=== PATIENT | female | born 1945 | race Caucasian/White ===

== ENCOUNTER 2018-12-11 13:30 | Emergency (ER) | payer MEDICARE ==
--- NOTE | 2018-12-11 14:01 | ED ---
Throat Pain/Nasal Congestion - HPI Summary HPI Summary: A 73 y/o female presents to [facility] with a chief complaint of thinking she had a fly in her left ear last night. She says that the fly was moving but now it is stopped. The patient is unsure if it is still there. She denies any pain in her ear, rating her pain as a 0/10 in severity. - History of Current Complaint Chief Complaint: EDEarPain Time Seen by Provider: 12/11/18 13:51 Hx Obtained From: Patient Onset/Duration: Sudden Onset, Lasting Hours, Still Present Severity: Mild Associated Signs And Symptoms: Positive: Negative Cough: None - Allergies/Home Medications Allergies/Adverse Reactions: Allergies Allergy/AdvReac Type Severity Reaction Status Date / Time acetaminophen [From Tylenol] Allergy Anxiety Verified 12/11/18 13:48 adhesive tape Allergy Rash Verified 12/11/18 13:48 amoxicillin Allergy Shortness Verified 12/11/18 13:49 of Breath apple Allergy Swelling Verified 12/11/18 13:48 atenolol Allergy See Comment Verified 12/11/18 13:48 cephalexin [From Keflex] Allergy Rash Verified 12/11/18 13:48 ciprofloxacin Allergy Rash Verified 12/11/18 13:48 ibuprofen Allergy Unknown Verified 12/11/18 13:48 Reaction Details Iodinated Contrast- Oral and Allergy Rash Verified 12/11/18 13:48 IV Dye metronidazole [From Flagyl] Allergy Unknown Verified 12/11/18 13:48 Reaction Details peach Allergy Swelling Verified 12/11/18 13:48 pear Allergy Swelling Verified 12/11/18 13:48 prednisone Allergy See Comment Verified 12/11/18 13:48 propoxyphene [From Darvon] Allergy See Comment Verified 12/11/18 13:48 sulindac [From Clinoril] Allergy Unknown Verified 12/11/18 13:48 Reaction Details tetracycline Allergy Unknown Verified 12/11/18 13:48 Reaction Details theophylline Allergy Unknown Verified 12/11/18 13:48 Reaction Details verapamil Allergy See Comment Verified 12/11/18 13:48 peaches Allergy Swelling Uncoded 04/28/16 10:57 pears Allergy Swelling Uncoded 04/28/16 10:57 tape Allergy Rash Uncoded 04/28/16 10:57 PMH/Surg Hx/FS Hx/Imm Hx Cardiovascular History: Reports: Hx Hypertension - controlled with medication, Other Cardiovascular Problems/Disorders - PSVT Denies: Hx Myocardial Infarction Respiratory History: Reports: Hx Asthma Sensory History: Denies: Hx Deafness EENT History: Denies: Hx Deafness Psychiatric History: Reports: Hx Anxiety - Surgical History Surgery Procedure, Year, and Place: appy, tonsillectomy, breast lumpectomies, right knee, tubal, hyster Hx Anesthesia Reactions: No - Immunization History Date of Tetanus Vaccine: remote Date of Influenza Vaccine: 2011 Infectious Disease History: No Infectious Disease History: Denies: Traveled Outside the [place] in Last 30 Days - Family History Known Family History: Positive: Hypertension - Social History Alcohol Use: None Substance Use Type: Reports: None Smoking Status (MU): Never Smoked Tobacco Review of Systems Negative: Fever Positive: Other - positive: possible fly in ear since last night without ear pain. Negative: Ear Ache All Other Systems Reviewed And Are Negative: Yes Physical Exam - Summary Physical Exam Summary: VITAL SIGNS: Reviewed. GENERAL: Patient is a well-developed and nourished FEMALE who is lying comfortable in the stretcher. Patient is not in any acute respiratory distress. HEAD AND FACE: No signs of trauma. No ecchymosis, hematomas or skull depressions. No sinus tenderness. EYES: PERRLA, EOMI x 2, No injected conjunctiva, no nystagmus. EARS: Hearing grossly intact. Ear canals and tympanic membranes are within normal limits. No foreign body found. MOUTH: Oropharynx within normal limits. NECK: Supple, trachea is midline, no adenopathy, no JVD, no carotid bruit, no c- spine tenderness, neck with full ROM. CHEST: Symmetric, no tenderness at palpation. LUNGS: Clear to auscultation bilaterally. No wheezing or crackles. CVS: Regular rate and rhythm, S1 and S2 present, no murmurs or gallops appreciated. ABDOMEN: Soft, non-tender. No signs of distention. No rebound, no guarding, and no masses palpated. Bowel sounds are normal. EXTREMITIES: FROM in all major joints, no edema, no cyanosis or clubbing. NEURO: Alert and oriented x 3. No acute neurological deficits. Speech is normal and follows commands. SKIN: Dry and warm. Triage Information Reviewed: Yes Vital Signs On Initial Exam: Initial Vitals Temp Pulse Resp BP Pulse Ox 98.3 F 70 16 144/73 99 12/11/18 13:32 12/11/18 13:32 12/11/18 13:32 12/11/18 13:32 12/11/18 13:32 Vital Signs Reviewed: Yes Diagnostics - Vital Signs Vital Signs Temp Pulse Resp BP Pulse Ox 12/11/18 13:32 98.3 F 70 16 144/73 99 - Laboratory Lab Statement: Any lab studies that have been ordered have been reviewed, and results considered in the medical decision making process. EENT Course/Dx - Course Assessment/Plan: A 73 y/o female presents to [facility] with a chief complaint of thinking she had a fly in her left ear last night. She says that the fly was moving but now it is stopped. The patient is unsure if it is still there. She denies any pain in her ear, rating her pain as a 0/10 in severity. After flushing the ear we noticed that she had a very small insect in the left ear which was removed. At this point the patient is feeling better therefore she will be discharged home with follow-up with her PCP. Patient is hemodynamically stable alert and oriented 3. - Diagnoses Provider Diagnoses: Ear foreign body Discharge - Sign-Out/Discharge Documenting (check all that apply): Patient Departure - DC Patient Received Moderate/Deep Sedation with Procedure: No - Discharge Plan Condition: Stable Disposition: HOME Patient Education Materials: Ear Foreign Body (ED) Referrals: Ramirez Gresham MD [Primary Care Provider] - (2-3 days) Additional Instructions: FOLLOW UP WITH YOUR PRIMARY CARE PROVIDER. RETURN TO THE ED FOR ANY WORSENING OR NEW SYMPTOMS. - Billing Disposition and Condition Condition: STABLE Disposition: Home - Attestation Statements Document Initiated by Wendi: Yes Documenting Scribe: Mikey Vincent Provider For Whom Wendi is Documenting (Include Credential): Willy Lemus MD Scribe Attestation: I, Mikey Vincent, scribed for Willy Lemus MD on 12/12/18 at 1225. Scribe Documentation Reviewed: Yes Provider Attestation: The documentation as recorded by the Mikey vance accurately reflects the service I personally performed and the decisions made by me, Willy Lemus MD Status of Scribe Document: Viewed
[2018-12-11 14:51] VITALS: BP 0/0
== END 2018-12-11 14:50 | disposition home or self-care (01) ==
LOC: ED 13:30
DX: T16.2XXA Foreign body in left ear, initial encounter (principal); X58.XXXA Exposure to other specified factors, initial encounter; Z88.8 Allergy status to other drugs, medicaments and biological substances; Z88.1 Allergy status to other antibiotic agents; Z91.041 Radiographic dye allergy status; I10 Essential (primary) hypertension; Z79.899 Other long term (current) drug therapy
CPT/HCPCS: 99281

== ENCOUNTER 2019-06-08 11:41 | Emergency (ER) | payer MEDICARE ==
--- NOTE | 2019-06-08 12:20 | ED ---
Complex/Multi-Sys Presentation - HPI Summary HPI Summary: 73 y/o female presented to [facility] complaining of dental pain since yesterday due to a left lower tooth that has been infected 3 times, according to Pt. Pt states she has been on 2 rounds of Zithromax and her dentist needs her medical clearance from water chaser in order to pull her tooth due to her SVT. Pt confirmed chills, swelling of the face and mouth, and intermittent heart palpitations. Patient has been urinating frequently and states a lack of control over urination. Hx of UTIs is endorsed. Pt denies any fever, erythema of eyes, sore throat, CP, SOB, cough, abdominal pain, N/V, dysuria, hematuria, myalgia, edema, rash, or dizziness as well as pain in arms or shoulder blades. She does not believe she is allergic to penicillin but is allergic to amoxicillin. She currently sees a doctor in [place]. 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 Negative : Dizziness, SOB, Cough, Chest Pain, Edema, Nausea, Vomiting, Diarrhea, Abdominal Pain, Dysuria, Fever Related History: Recent Illness - 3x infection - Allergies/Home Medications Allergies/Adverse Reactions: Allergies Allergy/AdvReac Type Severity Reaction Status Date / Time acetaminophen [From Tylenol] Allergy Anxiety Verified 06/08/19 11:51 adhesive tape Allergy Rash Verified 06/08/19 11:51 amoxicillin Allergy Shortness Verified 06/08/19 11:51 of Breath apple Allergy Swelling Verified 06/08/19 11:51 atenolol Allergy See Comment Verified 06/08/19 11:51 cephalexin [From Keflex] Allergy Rash Verified 06/08/19 11:51 ciprofloxacin Allergy Rash Verified 06/08/19 11:51 ibuprofen Allergy Unknown Verified 06/08/19 11:51 Reaction Details Iodinated Contrast Media Allergy Rash Verified 06/08/19 11:51 [Iodinated Contrast- Oral and IV Dye] metronidazole [From Flagyl] Allergy Unknown Verified 06/08/19 11:51 Reaction Details peach Allergy Swelling Verified 06/08/19 11:51 pear Allergy Swelling Verified 06/08/19 11:51 prednisone Allergy See Comment Verified 06/08/19 11:51 propoxyphene [From Darvon] Allergy See Comment Verified 06/08/19 11:51 sulindac [From Clinoril] Allergy Unknown Verified 06/08/19 11:51 Reaction Details tetracycline Allergy Unknown Verified 06/08/19 11:51 Reaction Details theophylline Allergy Unknown Verified 06/08/19 11:51 Reaction Details verapamil Allergy See Comment Verified 06/08/19 11:51 PMH/Surg Hx/FS Hx/Imm Hx Cardiovascular History: Reports: Hx Hypertension - controlled with medication, Other Cardiovascular Problems/Disorders - PSVT Denies: Hx Myocardial Infarction Respiratory History: Reports: Hx Asthma Sensory History: Denies: Hx Deafness Psychiatric History: Reports: Hx Anxiety - Surgical History Surgery Procedure, Year, and Place: appy, tonsillectomy, breast lumpectomies, right knee, tubal, hyster Hx Anesthesia Reactions: No - Immunization History Date of Tetanus Vaccine: remote Date of Influenza Vaccine: 2011 Infectious Disease History: No Infectious Disease History: Denies: Traveled Outside the [place] in Last 30 Days - Family History Known Family History: Positive: Hypertension - Social History Alcohol Use: None Substance Use Type: Reports: None Smoking Status (MU): Never Smoked Tobacco Review of Systems Positive: Chills. Negative: Fever Negative: Erythema Positive: Dental Pain. Negative: Sore Throat Positive: Palpitations. Negative: Chest Pain Negative: Shortness Of Breath, Cough Negative: Abdominal Pain, Vomiting, Nausea Positive: frequency - high. Negative: dysuria, hematuria Negative: Myalgia, Edema Negative: Rash Neurological: Other - negative dizziness All Other Systems Reviewed And Are Negative: Yes Physical Exam - Summary Physical Exam Summary: Constitutional: Well-developed, Well-nourished, Alert. (-) Distressed Skin: Warm, Dry HENT: Normocephalic; Atraumatic, see Images for dental evaluation Eyes: Conjunctiva normal Neck: Musculoskeletal ROM normal neck. (-) JVD, (-) Stridor, (-) Tracheal deviation Cardio: Rhythm regular, rate normal, Heart sounds normal; Intact distal pulses; The pedal pulses are 2+ and symmetric. Radial pulses are 2+ and symmetric. (-) Murmur Pulmonary/Chest wall: Effort normal. (-) Respiratory distress, (-) Wheezes, (-) Rales Abd: Soft, (-) tenderness, (-) Distension, (-) Guarding, (-) Rebound Musculoskeletal: (-) Edema Lymph: (-) Cervical adenopathy Neuro: Alert, Oriented x3 Psych: Mood and affect Normal Triage Information Reviewed: Yes Vital Signs On Initial Exam: Initial Vitals Temp Pulse Resp BP Pulse Ox 98.5 F 74 16 208/100 97 06/08/19 11:43 06/08/19 11:43 06/08/19 11:43 06/08/19 11:43 06/08/19 11:43 Vital Signs Reviewed: Yes Procedures - Sedation Patient Received Moderate/Deep Sedation with Procedure: No Diagnostics - Vital Signs Vital Signs Temp Pulse Resp BP Pulse Ox 06/08/19 11:43 98.5 F 74 16 208/100 97 - Laboratory Result Diagrams: 06/08/19 12:15 06/08/19 12:15 Lab Statement: Any lab studies that have been ordered have been reviewed, and results considered in the medical decision making process. - EKG 1212 Cardiac Rate: NL EKG Rhythm: Sinus Rhythm Summary of EKG Findings: Normal sinus rhythm at 81bpm. No STEMI. This EKG was reviewed and interpreted by the ED physician. Complex Multi-Symp Course/Dx Course Of Treatment: 73 y/o female presented to [facility] complaining of dental pain since yesterday due to a left lower tooth that has been infected 3 times, according to Pt. Pt states she has been on 2 rounds of Zithromax and her dentist needs her medical clearance from water chaser in order to pull her tooth due to her SVT. Pt confirmed chills, swelling of the face and mouth, and intermittent heart palpitations. Patient has been urinating frequently and states a lack of control over urination. Hx of UTIs is endorsed. Exam of 19th tooth showed significant decay, filling in place, no periapical abscess; no trismus noted. EKG showed normal sinus rhythm at 81bpm. No STEMI. Bloodwork shows abs monos and glucose high. Mg was low at 1.6. UA showed blood, leukocyte esterase, WBC, RBC, squamous epithelium, and bx. Pt was given 500mg PO Zithromax, 300mg PO Cleocin, 400mg PO Motrin, and 1 tab PO Bactrim Ds. HTN appears asymptomatic, pt was advised to monitor BP and follow up with PCP. Pt was discharged with Dx of Hypomagnesemia, UTI, and dental infection and instructed to follow up with her PCP in 2-3 days as well as her dentist. She was prescribed a Mg supplement, Bactrim, and Clindamyacin. - Diagnoses Provider Diagnoses: Hypomagnesemia, UTI (urinary tract infection), Dental infection Discharge ED - Sign-Out/Discharge Documenting (check all that apply): Patient Departure - dc - Discharge Plan Condition: Stable Disposition: HOME Prescriptions: Clindamycin HCl 300 mg PO QID #28 capsule Magnesium Oxide TAB* [MagOx 400 TAB*] 400 mg PO DAILY #14 tab Sulfamethox/Trimethoprim DS* [Bactrim DS 800/160 TAB*] 1 tab PO BID #10 tab Patient Education Materials: Urinary Tract Infection in Women (ED), Hypomagnesemia (ED), Toothache (ED) Referrals: Ramirez Gresham MD [Primary Care Provider] - Additional Instructions: Follow up with your primacy care provider in 2-3 days. Also follow up with your dentist. If you experience new or worsening symptoms please return to the ER. Images - Images Dental: 1 - significant decay, filling in place, no periapical abscess, no trismus - Attestation Statements Document Initiated by Scribe: Yes Documenting Scribe: KAI ENRIQUEZ Provider For Whom Scribe is Documenting (Include Credential): CLEMENTE VALADEZ MD Scribe Attestation: KAI Anguiano, scribed for CLEMENTE VALADEZ MD on 06/08/19 at 1620. Status of Scribe Document: Ready
[2019-06-08 12:27] LABS: ABS Eosinophils 0.1 10^3/ul (0-0.6); ABS Lymphocytes 1.4 10^3/ul (1.0-4.8); ABS Monocytes 0.9 10^3/ul (0-0.8); ABS Neutrophils 5.1 10^3/ul (1.5-7.7); Eosinophil % 1.6 %; Hematocrit 41 % (35-47); Hemoglobin 13.8 g/dL (12.0-16.0); Lymphocyte % 18.7 %; Mean Corpuscular HGB Conc 34 g/dL (31-36); Mean Corpuscular Hemoglobin 29 pg (27-31); Mean Corpuscular Volume 87 fL (80-97); Mean Platelet Volume 8.8 fL (7.4-10.4); Platelet Count 260 10^3/uL (150-450); Red Blood Count 4.71 10^6 /uL (3.70-4.87); Red Cell Distribution Width 14 % (10-15); White Blood Count 7.5 10^3/uL (3.5-10.8)
[2019-06-08 12:46] LABS: Albumin 3.8 g/dL (3.2-5.2); Albumin/Globulin Ratio 1.1 (1-3); BUN/Creatinine Ratio 17.6 (8-20); Calcium 9.2 mg/dL (8.6-10.3); EGFR African American 73.5 (>60); EGFR Non-African American 60.8 (>60); Globulin 3.4 g/dL (2-4); Magnesium 1.6 mg/dL (1.9-2.7); Potassium 3.9 mmol/L (3.5-5.0); Total Bilirubin 0.7 mg/dL (0.2-1.0); Total Protein 7.2 g/dL (6.4-8.9)
[2019-06-08 12:47] LABS: Troponin I 0.01 ng/mL (<0.03)
[2019-06-08] MEDS ORDERED: Ibuprofen TAB* 400 MG PO ONE (12:50)
[2019-06-08] MEDS ORDERED: Azithromycin TAB* 250 MG PO ONE (12:50)
[2019-06-08 13:07] LABS: T4, Total 7.52 mcg/dL (6.09-12.23)
[2019-06-08 13:11] LABS: TSH (Thyroid Stimulating Horm) 0.95 mcIU/mL (0.34-5.60)
[2019-06-08 14:01] LABS: Urine Appearance Clear; Urine Bilirubin Negative (Negative); Urine Blood 1+ (Negative); Urine Color Yellow; Urine Glucose Negative (Negative); Urine Ketones Negative (Negative); Urine Nitrite Negative (Negative); Urine Protein Negative (Negative); Urine Specific Gravity 1.013 (1.010-1.030); Urine Urobilinogen Negative (Negative)
[2019-06-08 14:04] LABS: Urine Bacteria 1+ (Absent); Urine Red Blood Cell 1+(3-5/hpf) (Absent); Urine Squamous Epithelial Cell Present (Absent); Urine White Blood Cell 3+(>20/hpf) (Absent)
[2019-06-08] MEDS ORDERED: Sulfamethox/Trimethoprim DS 800/160* TAB PO ONE (14:17)
[2019-06-08] MEDS ORDERED: Clindamycin CAP* 150 MG PO ONE (14:17)
[2019-06-08 14:40] VITALS: BP 180/84
--- NOTE | 2019-06-10 06:03 | ED ---
Imaging and Labs Follow Up Follow Up Type: Labs/Cultures Labs/Culture Result: urine culture preliminary shows 75-100,000 Escherichia coli, 75-100,000 Klebsiella pneumonia. Patient Communication/Plan: Patient treated with clindamycin and Bactrim this is presumed appropriate. Awaiting sensitivity reports. Provider Diagnoses: Hypomagnesemia, UTI (urinary tract infection), Dental infection
== END 2019-06-08 14:39 | disposition home or self-care (01) ==
LOC: ED 11:41
DX: K08.89 Other specified disorders of teeth and supporting structures (principal); N39.0 Urinary tract infection, site not specified; B96.20 Unspecified Escherichia coli [E. coli] as the cause of diseases classified elsewhere; B96.1 Klebsiella pneumoniae [K. pneumoniae] as the cause of diseases classified elsewhere; I10 Essential (primary) hypertension; F41.9 Anxiety disorder, unspecified; R00.2 Palpitations; B99.9 Unspecified infectious disease
CPT/HCPCS: 36415; 80053; 81003; 81015; 83605; 83735; 84436; 84443; 84484; 85025; 87077; 87086; 87186; 93005; 99282; A9270-GY

== ENCOUNTER 2019-09-30 21:38 | Emergency (ER) | payer MEDICARE ==
--- NOTE | 2019-09-30 22:39 | ED ---
Palpitations / Dysrhythmia - HPI Summary HPI Summary: This pt is a 73 Y/O F presenting to [facility] with a CC of palpitations that began yesterday and were intermittent in nature. She states that she checked her pulse yesterday while at home after feeling jittery. She states that when she tested it with her at home pulse-ox she had a rate of 33 BPM and had a low BP. Currently she states that she has tachycardia and HTN. She currently denies any fevers, chills, headaches, SOB, CP, sore throat, dizziness, lightheadedness, and coughs. She states that she has no aggravating or alleviating factors. She has a PMHx of HTN. - History of Current Complaint Chief Complaint: EDDysrhythmPalp Time Seen by Provider: 09/30/19 22:31 Hx Obtained From: Patient Onset/Duration: Sudden Onset Timing: Constant Severity Initially: Moderate Severity Currently: Moderate Character: Slow, Fast Aggravating: Nothing Alleviating: Nothing Associated Signs & Symptoms: Negative - fevers, chills, headaches, SOB, CP, sore throat, dizziness, lightheadedness, and coughs - Allergy/Home Medications Allergies/Adverse Reactions: Allergies Allergy/AdvReac Type Severity Reaction Status Date / Time acetaminophen [From Tylenol] Allergy Anxiety Verified 09/30/19 21:49 adhesive tape Allergy Rash Verified 09/30/19 21:49 amoxicillin Allergy Shortness Verified 09/30/19 21:49 of Breath apple Allergy Swelling Verified 09/30/19 21:49 atenolol Allergy See Comment Verified 09/30/19 21:49 cephalexin [From Keflex] Allergy Rash Verified 09/30/19 21:49 ciprofloxacin Allergy Rash Verified 09/30/19 21:49 ibuprofen Allergy Unknown Verified 09/30/19 21:49 Reaction Details Iodinated Contrast Media Allergy Rash Verified 09/30/19 21:49 [Iodinated Contrast- Oral and IV Dye] metronidazole [From Flagyl] Allergy Unknown Verified 09/30/19 21:49 Reaction Details peach Allergy Swelling Verified 09/30/19 21:49 pear Allergy Swelling Verified 09/30/19 21:49 prednisone Allergy See Comment Verified 09/30/19 21:49 propoxyphene [From Darvon] Allergy See Comment Verified 09/30/19 21:49 sulindac [From Clinoril] Allergy Unknown Verified 09/30/19 21:49 Reaction Details tetracycline Allergy Unknown Verified 09/30/19 21:49 Reaction Details theophylline Allergy Unknown Verified 09/30/19 21:49 Reaction Details verapamil Allergy See Comment Verified 09/30/19 21:49 Home Medications: Home Medications Lisinopril TAB* [Prinivil TAB 10 MG*] 10 mg PO DAILY 04/28/16 [History Confirmed 12/11/16] Potassium Chlor TAB* [Potassium Chlor TAB 20 MEQ*] 20 meq PO DAILY 04/28/16 [ History Confirmed 12/11/16] Hydrochlorothiazide TAB* [Hydrodiuril TAB*] 12.5 mg PO DAILY #30 tab 04/29/16 [ Rx Confirmed 12/11/16] Albuterol HFA INHALER* [Ventolin HFA Inhaler*] 2 puff INH Q6H PRN 12/11/16 [ History Confirmed 12/11/16] Cranberry Conc/Ascorbic Acid [Cranberry Fruit Concentra] 12,600 mg PO DAILY 11/22 [History Confirmed 12/11/16] Metoprolol Succinate [Toprol Xl] 50 mg PO BID 12/11/16 [History Confirmed ] Omeprazole CAP (NF) [Prilosec CAP* 20 MG] 20 mg PO DAILY 12/11/16 [History Confirmed 12/11/16] Magnesium Oxide TAB* [MagOx 400 TAB*] 400 mg PO DAILY #14 tab 06/08/19 [Rx] Sulfamethox/Trimethoprim DS* [Bactrim DS 800/160 TAB*] 1 tab PO BID #10 tab 06/27 [Rx] clindamycin HCL [Clindamycin HCl] 300 mg PO QID #28 capsule 06/08/19 [Rx] PMH/Surg Hx/FS Hx/Imm Hx Previously Healthy: Yes Endocrine/Hematology History: Denies: Hx Diabetes Cardiovascular History: Reports: Hx Hypertension - controlled with medication, Other Cardiovascular Problems/Disorders - PSVT Denies: Hx Myocardial Infarction Respiratory History: Reports: Hx Asthma Sensory History: Denies: Hx Deafness Psychiatric History: Reports: Hx Anxiety - Cancer History Hx Chemotherapy: No Hx Radiation Therapy: No - Surgical History Surgical History: Yes Surgery Procedure, Year, and Place: appy, tonsillectomy, breast lumpectomies, right knee, tubal, hyster Hx Anesthesia Reactions: No - Immunization History Date of Tetanus Vaccine: remote Date of Influenza Vaccine: 2011 Immunizations Up to Date: Yes Infectious Disease History: No Infectious Disease History: Denies: Traveled Outside the [place] in Last 30 Days - Family History Known Family History: Positive: Hypertension - Social History Occupation: Retired Lives: Alone Alcohol Use: None Hx Substance Use: No Substance Use Type: Reports: None Hx Tobacco Use: No Smoking Status (MU): Never Smoked Tobacco Review of Systems Negative: Fever, Chills Negative: Sore Throat Positive: Palpitations - slow yesterday, fast today , Other - fluctuating blood pressure, low and high . Negative: Chest Pain Negative: Shortness Of Breath, Cough Negative: Vomiting, Nausea Neurological/Mental Status: Negative - dizziness, lightheadedness Negative: Headache All Other Systems Reviewed And Are Negative: Yes Physical Exam - Summary Physical Exam Summary: Appearance: Well-appearing, Well-nourished, lying in bed comfortably Skin: Warm, dry, no obvious rash Eyes: sclera anicteric, no conjunctival pallor ENT: mucous membranes moist, pharynx appears normal Neck: Supple, nontender Respiratory: Clear to auscultation, no signs of respiratory distress Cardiovascular: Normal S1, S2. No murmurs. Normal distal pulses in tibial and radial bilaterally. Abdomen: Soft, nontender, normal active bowel sounds present Musculoskeletal: Normal, Strength/ROM Intact Neurological: A&Ox3, awake and alert, mentation is normal, speech is fluent and appropriate Psychiatric: affect is normal, does not appear anxious or depressed Triage Information Reviewed: Yes Vital Signs On Initial Exam: Initial Vitals Temp Pulse Resp BP Pulse Ox 99.1 F 86 19 196/117 97 09/30/19 21:42 09/30/19 21:42 09/30/19 21:42 09/30/19 21:42 09/30/19 21:42 Vital Signs Reviewed: Yes Procedures - Sedation Patient Received Moderate/Deep Sedation with Procedure: No Diagnostics - Vital Signs Vital Signs Temp Pulse Resp BP Pulse Ox 09/30/19 21:42 99.1 F 86 19 196/117 97 - Laboratory Lab Statement: Any lab studies that have been ordered have been reviewed, and results considered in the medical decision making process. Course/Dx - Course Course Of Treatment: This pt is a 73 Y/O F presenting to [facility] with a CC of palpitations that began yesterday and were intermittent in nature. She states that she checked her pulse yesterday while at home after feeling jittery. She states that when she tested it with her at home pulse-ox she had a rate of 33 BPM and had a low BP. Currently she states that she has tachycardia and HTN. Her PE shows no acute abnormalities. - Diagnoses Provider Diagnoses: Chronic hypertension - Critical Care Time Critical Care Statement: Critical care time is provided exclusive of any time spent performing procedures. Discharge ED - Sign-Out/Discharge Documenting (check all that apply): Patient Departure - discharge - Discharge Plan Referrals: Marga DEAN,Ramirez [Primary Care Provider] - - Attestation Statements Document Initiated by Scribe: Yes Documenting Scribe: Darien Tony Provider For Whom Scribe is Documenting (Include Credential): Deniz Powell MD Scribe Attestation: Darien Anguiano, scribed for Deniz Powell MD on 09/30/19 at 2241. Status of Scribe Document: Ready
[2019-09-30 22:59] VITALS: BP 197/101
== END 2019-09-30 22:59 | disposition home or self-care (01) ==
LOC: ED 21:38
DX: I10 Essential (primary) hypertension (principal); R00.2 Palpitations; Z88.0 Allergy status to penicillin; Z88.8 Allergy status to other drugs, medicaments and biological substances; Z79.899 Other long term (current) drug therapy; F41.9 Anxiety disorder, unspecified; J45.909 Unspecified asthma, uncomplicated
CPT/HCPCS: 99282

== ENCOUNTER 2021-07-29 02:46 | Observation (INO) ==
[2021-07-29] MEDS ORDERED: Ondansetron 4 mg VIAL 2 MG/ML 2 ml VIAL IV ONE (03:02)
[2021-07-29 03:49] LABS: Hematocrit 40 % (35-47); Hemoglobin 13.3 g/dL (12.0-16.0); Mean Corpuscular HGB Conc 33 g/dL (31-36); Mean Corpuscular Hemoglobin 29 pg (27-31); Mean Corpuscular Volume 88 fL (80-97); Mean Platelet Volume 8.5 fL (7.4-10.4); Platelet Count 206 10^3/uL (150-450); Red Blood Count 4.59 10^6 /uL (3.70-4.87); Red Cell Distribution Width 14 % (10-15); White Blood Count 12.3 10^3/uL (3.5-10.8)
[2021-07-29 04:07] LABS: Activated Partial Thrombo Time 27.9 seconds (26.0-38.0); INR 1.09 (0.86-1.15)
[2021-07-29 04:07] LABS: Albumin 3.8 g/dL (3.2-5.2); Albumin/Globulin Ratio 1.2 (1-3); C Reactive Protein 12.41 mg/L (<8.01); Calcium 8.9 mg/dL (8.6-10.3); Globulin 3.1 g/dL (2-4); Potassium 3.8 mmol/L (3.5-5.0); Total Bilirubin 0.7 mg/dL (0.2-1.0); Total Protein 6.9 g/dL (6.4-8.9); eGFR CKD-EPI 60.6 (>60)
[2021-07-29 04:09] LABS: Troponin I 0.01 ng/mL (<0.03)
[2021-07-29 04:22] LABS: ABS Basophils 0.1 10^3/ul (0-0.2); ABS Lymphocytes 0.4 10^3/ul (1.0-4.8); ABS Monocytes 2.2 10^3/ul (0-0.8); ABS Neutrophils 9.5 10^3/ul (1.5-7.7); Eosinophil % 0.2 %; Lymphocyte % 3.4 %
[2021-07-29] MEDS ORDERED: Clindamycin 600 MG/D5W BAG 600 MG/50 ML BAG IV ONE (05:30)
[2021-07-29] MEDS: Enoxaparin 40 MG/0.4 ML SYR SUBCUT SCH (09:50)
[2021-07-29] MEDS: Potassium Chlor 20 meq TAB.ER PO SCH (09:51)
[2021-07-29] MEDS: Clindamycin 600 MG/D5W BAG 600 MG/50 ML BAG IV SCH ×2 (14:55→23:14)
[2021-07-30 06:15] LABS: Hematocrit 33 % (35-47); Hemoglobin 11.1 g/dL (12.0-16.0); Mean Corpuscular HGB Conc 34 g/dL (31-36); Mean Corpuscular Hemoglobin 30 pg (27-31); Mean Corpuscular Volume 87 fL (80-97); Mean Platelet Volume 8.7 fL (7.4-10.4); Platelet Count 172 10^3/uL (150-450); Red Blood Count 3.78 10^6 /uL (3.70-4.87); Red Cell Distribution Width 15 % (10-15); White Blood Count 9.3 10^3/uL (3.5-10.8)
[2021-07-30 06:16] LABS: ABS Lymphocytes 0.8 10^3/ul (1.0-4.8); ABS Monocytes 1.7 10^3/ul (0-0.8); ABS Neutrophils 6.7 10^3/ul (1.5-7.7); Eosinophil % 0.2 %; Nucleated Red Blood Cells % 0.1
[2021-07-30 06:29] LABS: Calcium 8.3 mg/dL (8.6-10.3); Potassium 3.9 mmol/L (3.5-5.0); eGFR CKD-EPI 52.2 (>60)
[2021-07-30] MEDS: Clindamycin 600 MG/D5W BAG 600 MG/50 ML BAG IV SCH ×2 (06:37→14:11)
[2021-07-30] MEDS: Enoxaparin 40 MG/0.4 ML SYR SUBCUT SCH (10:08)
[2021-07-30] MEDS: Potassium Chlor 20 meq TAB.ER PO SCH (10:08)
[2021-07-30 16:21] VITALS: BP 140/70
== END 2021-07-30 16:35 | disposition home or self-care (01) ==
LOC: ED 02:46 → EDHOLD 02:46 → MEDTELE 12:14
PROVIDERS: ADMIT Internal Medicine; ATTEND Internal Medicine

== ENCOUNTER 2023-08-03 07:33 | Inpatient (IN) ==
[2023-08-03] MEDS ORDERED: Lorazepam PYXIS KEY PRN (07:38)
[2023-08-03] MEDS ORDERED: Rocuronium 50 mg VIAL 10 mg/ml 5 ml VIAL (50 mg) ONE (07:41)
[2023-08-03] MEDS ORDERED: Succinylcholine 200 mg VIAL 20 mg/ml 10 ml VIAL (200 mg) ONE (07:41)
[2023-08-03] MEDS: LORazepam 2 mg VIAL 1 ml IV PUSH ONE (07:49)
[2023-08-03 07:53] LABS: Hematocrit 34.3 % (35-45); Hemoglobin 11.5 g/dL (11.5-14.3); Mean Corpuscular Hemoglobin 29.2 pg (27-33); Mean Corpuscular Hgb Conc 33.5 g/dL (31-36); Mean Corpuscular Volume 87.3 fL (80-97); Platelet Count 435 10^3/uL (150-450); Red Blood Count 3.93 10^6/uL (3.63-4.92); Red Cell Distribution Width 17.3 % (12-17); White Blood Count 9.2 10^3/uL (3.8-11.8)
[2023-08-03 08:20] LABS: PCO2 Arterial 46 mmHg (35-45); PO2 Arterial 89 mmHg (80-100)
[2023-08-03 08:34] LABS: Activated Partial Thrombo Time 28.5 seconds (26.0-38.0); INR 1.05 (0.83-1.13)
[2023-08-03 08:37] LABS: ABS Basophils 0.1 10^3/uL (0.0-0.1); ABS Eosinophils 0.3 10^3/uL (0.0-0.5); ABS Lymphocytes 1.3 10^3/uL (1.0-4.8); ABS Monocytes 1.8 10^3/uL (0.0-0.9); ABS Neutrophils 5.9 10^3/uL (1.5-7.6); ABS Nucleated RBC 0.01 10^3/ul; Eosinophil % 2.8 %; Lymphocyte % 13.6 %; Nucleated Red Blood Cells % 0.1 %/100WBC (0.0-0.8)
[2023-08-03 08:40] LABS: Albumin 3.4 g/dL (3.2-5.2); Calcium 9.2 mg/dL (8.6-10.3); Creatinine, Serum 0.86 mg/dL (0.51-0.95); Direct Bilirubin 0.1 mg/dL (0.03-0.18); Globulin 3.4 g/dL (2-4); HDL Cholesterol 42.7 mg/dL; Indirect Bilirubin 0.4 mg/dL (0.3-1.0); Potassium 3.5 mmol/L (3.5-5.0); Total Bilirubin 0.5 mg/dL (0.2-1.0); Total Protein 6.8 g/dL (6.4-8.9)
[2023-08-03] MEDS: Dexamethasone IV 4 MG/ML VIAL 1 ml VIAL IV SLOW PU ONE (08:53)
[2023-08-03] MEDS: levETIRAcetam IV 3,000 MG in NS 0.9% 100 ml BAG 100 ML IVPB ONE (08:59)
[2023-08-03 09:03] LABS: Urine Appearance Clear; Urine Bilirubin Negative (Negative); Urine Blood Negative (Negative); Urine Color Yellow; Urine Glucose Negative (Negative); Urine Ketones Negative (Negative); Urine Nitrite Negative (Negative); Urine Protein Trace (Negative); Urine Urobilinogen 1+ (Negative)
[2023-08-03] MEDS: NS 0.9% 1000 ml BAG 1,000 ML IV SCH (09:19)
[2023-08-03] MEDS: Iodixanol (CONTRAST) 320 MG/ML 100 ML SDV IV ONE (09:23)
[2023-08-03 10:26] LABS: Urine Bacteria Absent /HPF (Absent); Urine Red Blood Cell 2+(6-10/hpf) /HPF (0-Trace); Urine Squamous Epithelial Cell Present /HPF (Absent); Urine White Blood Cell 1+(6-10/hpf) /HPF (0-Trace)
[2023-08-03] MEDS: Iohexol 350 (CONTRAST) 500 ML MDV IV ONE (10:50)
[2023-08-03] MEDS: Senna TAB 8.6 mg TAB PO SCH (19:53)
[2023-08-03] MEDS: Heparin 5000 UNITS/ML 1 mL VIAL SUBCUT SCH (19:53)
[2023-08-03] MEDS: levETIRAcetam 1000MG IVPREMIX 1,000 MG/100 ML BAG IVPB SCH (22:29)
[2023-08-03] MEDS: levETIRAcetam LIQ 500 MG/5 ML UDC G TUBE SCH (22:38)
[2023-08-04 05:04] LABS: Hematocrit 31.9 % (35-45); Hemoglobin 10.7 g/dL (11.5-14.3); Mean Corpuscular Hgb Conc 33.6 g/dL (31-36); Mean Corpuscular Volume 86.4 fL (80-97); Mean Platelet Volume 8.1 fL (7.5-11.2); Platelet Count 400 10^3/uL (150-450); Red Blood Count 3.69 10^6/uL (3.63-4.92); Red Cell Distribution Width 17.2 % (12-17); White Blood Count 13.2 10^3/uL (3.8-11.8)
[2023-08-04 06:12] LABS: Calcium 8.8 mg/dL (8.6-10.3); Creatinine, Serum 0.86 mg/dL (0.51-0.95); Magnesium 2.1 mg/dL (1.9-2.7); Potassium 3.7 mmol/L (3.5-5.0)
[2023-08-04] MEDS: Iohexol 350 (CONTRAST) 500 ML MDV IV ONE (15:22)
[2023-08-04] MEDS: Lidocaine 1% MPF 5 ML VIAL INJ ONE (16:21)
[2023-08-05 06:26] LABS: Hematocrit 30.5 % (35-45); Hemoglobin 10.3 g/dL (11.5-14.3); Mean Corpuscular Hemoglobin 29.2 pg (27-33); Mean Corpuscular Hgb Conc 33.9 g/dL (31-36); Mean Corpuscular Volume 86.1 fL (80-97); Mean Platelet Volume 8.4 fL (7.5-11.2); Platelet Count 365 10^3/uL (150-450); Red Blood Count 3.54 10^6/uL (3.63-4.92); Red Cell Distribution Width 17.4 % (12-17); White Blood Count 10.9 10^3/uL (3.8-11.8)
[2023-08-05 07:15] LABS: Calcium 8.6 mg/dL (8.6-10.3); Creatinine, Serum 0.82 mg/dL (0.51-0.95); Magnesium 2.1 mg/dL (1.9-2.7); Potassium 3.5 mmol/L (3.5-5.0); eGFR CKD-EPI 74.1 (>60)
[2023-08-06 10:38] VITALS: BP 148/60
== END 2023-08-06 13:03 | DRG 56 ==
LOC: ED 07:33 → SUATTDRO 09:42 → EDHOLD 09:42 → ICU 10:49 → MEDTELE 08-05 01:41
PROVIDERS: ADMIT Surgery Surgical Critical Care; ATTEND Student in an Organized Health Care Education/Training Program

== ENCOUNTER 2024-07-09 22:11 | Observation (INO) ==
[2024-07-09] MEDS: Lactated Ringers 1000 ml BAG IV.FLUID IV ONE (23:32)
[2024-07-09 23:36] LABS: Hematocrit 40.6 % (35-45); Mean Corpuscular Hemoglobin 29.7 pg (27-33); Mean Corpuscular Hgb Conc 34.5 g/dL (31-36); Mean Platelet Volume 8.2 fL (7.5-11.2); Platelet Count 324 10^3/uL (150-450); Red Blood Count 4.72 10^6/uL (3.63-4.92); Red Cell Distribution Width 16.7 % (12-17); White Blood Count 6.4 10^3/uL (3.8-11.8)
[2024-07-10 00:08] LABS: ABS Eosinophils 0.1 10^3/uL (0.0-0.5); ABS Lymphocytes 1.2 10^3/uL (1.0-4.8); ABS Monocytes 1.8 10^3/uL (0.0-0.9); ABS Neutrophils 3.3 10^3/uL (1.5-7.6); Eosinophil % 1.4 %; Lymphocyte % 18.6 %
[2024-07-10 00:12] LABS: Albumin 3.6 g/dL (3.5-5.7); Calcium 9.4 mg/dL (8.6-10.3); Creatinine, Serum 0.65 mg/dL (0.51-0.95); Globulin 3.6 g/dL (2-4); Potassium 3.5 mmol/L (3.5-5.0); Total Bilirubin 0.8 mg/dL (0.2-1.0); Total Protein 7.2 g/dL (6.4-8.9); eGFR CKD-EPI 90.6 (>60)
[2024-07-10] MEDS: D5W 1/2 NS KCl 20 meq 1000 ml 1,000 ML IV SCH (00:53)
[2024-07-10] MEDS ORDERED: Valproic Acid IV 100 MG/ML 5 ML VIAL (500 MG) IVPB SCH (09:00)
[2024-07-10] MEDS: Zinc Oxide 16% PASTE (Butt Paste) 30 gm TUBE TOPICAL SCH (10:10)
[2024-07-10] MEDS: NS 0.9% IVPB SCH (10:10)
[2024-07-10] MEDS: VALPROIC ACID IVPB SCH (10:10)
[2024-07-10] MEDS: levETIRAcetam 1000MG IVPREMIX 1,000 MG/100 ML BAG IVPB SCH (10:11)
[2024-07-10] MEDS: Sodium Bicarb 650 mg (ANTACID) TAB PO ONE (13:12)
[2024-07-10] MEDS: Pancrelipase 5,000 units CAP PO ONE (13:12)
[2024-07-10] MEDS: Pancrelipase 5,000 units CAP G TUBE ONE (13:12)
[2024-07-10] MEDS: Enoxaparin 40 MG/0.4 ML SYR SUBCUT SCH (20:20)
[2024-07-11] MEDS: levETIRAcetam 1000MG IVPREMIX 1,000 MG/100 ML BAG IVPB SCH (09:26)
[2024-07-11] MEDS: NS 0.9% IVPB SCH (09:57)
[2024-07-11] MEDS: VALPROIC ACID IVPB SCH (09:57)
[2024-07-11] MEDS: Nystatin TOP POWDER 15 GM BTL TOPICAL SCH (13:23)
[2024-07-11] MEDS: Senna TAB 8.6 mg TAB PO SCH (22:35)
[2024-07-12 14:35] VITALS: BP 138/59
[2024-07-12] MEDS: fentaNYL 100 mcg/2 ml 50 MCG/ML VIAL ONE (15:53)
== END 2024-07-12 17:20 ==
LOC: EDHOLD 22:11 → ED 22:11 → SUATTDRO 07-10 00:16 → MED 07-10 20:20
PROVIDERS: ADMIT Hospitalist; ATTEND Student in an Organized Health Care Education/Training Program